=== PATIENT | female | born 1975 | race Caucasian/White ===

== ENCOUNTER 2018-09-21 10:58 | Emergency (ER) | payer OTHER ==
[~2018-09-21] VITALS: Ht 170.2 cm; Wt 108.9 kg
[~2018-09-21 10:58] MED LIST: IRON PO; MOTRIN200 MG PO; MOTRIN600 MG; ULTRAM 50MG50 MG; ULTRAM 50MG50 MG PO
[2018-09-21] MEDS ORDERED: KETOROLAC TROMETHAMINE 30 MG/ML VIAL IV NR (11:33)
[2018-09-21 11:44] LABS: BASOPHILS % 0.4 % (0.0-1.0); EOSINOPHILS # (AUTO) 0.2 (0.0-0.4); EOSINOPHILS % 1.4 % (0.0-6.0); HEMATOCRIT 40.1 % (34.2-44.1); HEMOGLOBIN 13.6 g/dL (12.0-16.0); LYMPHOCYTES % 9.7 % (18.0-39.1); MEAN CORPUSCULAR HEMOGLOBIN 29.1 pg (28-32); MEAN CORPUSCULAR HGB CONC 33.9 g/dL (31-35); MEAN CORPUSCULAR VOLUME 85.9 fL (81-99); MONOCYTES # (AUTO) 0.6 (0.2-0.8); MONOCYTES % 5.5 % (4.4-11.3); NEUTROPHILS # (AUTO) 8.6 (2.1-6.9); NEUTROPHILS % 82.6 % (38.7-80.0); PLATELET COUNT 341 x10e3/uL (140-360); RED BLOOD COUNT 4.67 x10e6/uL (3.6-5.1)
[2018-09-21] MEDS ORDERED: PROMETHAZINE 12.5MG/ NACL 0.9% 12.5 MG/50 ML BAG IV NR (11:45)
[2018-09-21] MEDS ORDERED: DIPHENHYDRAMINE HCL INJ 50 MG/ML VIAL IV NR (11:45)
[2018-09-21] MEDS ORDERED: DEXAMETHASONE SOD PHOS 10 MG/1 ML VIAL IV NR (11:45)
[2018-09-21] MEDS ORDERED: FAMOTIDINE 20 MG/2 ML VIAL IV NR (11:45)
[2018-09-21] MEDS ORDERED: SODIUM CHLORIDE 0.9% 1000ML 1,000 ML IV SCH (11:45)
[2018-09-21 11:47] LABS: BILIRUBIN,URINE NEGATIVE (NEGATIVE); CLARITY,URINE CLOUDY (CLEAR); COLOR,URINE YELLOW (YELLOW); KETONES,URINE NEGATIVE (NEGATIVE); LEUKOCYTE ESTERASE ,URINE NEGATIVE (NEGATIVE); NITRITE,URINE NEGATIVE (NEGATIVE); PROTEIN,URINE DIPSTICK TRACE (NEGATIVE); URINE UROBILINOGEN 0.2 mg/dL (0.2 - 1)
[2018-09-21 11:50] LABS: PREGNANCY TEST, URINE NEGATIVE (NEGATIVE)
[2018-09-21 12:01] LABS: AMORPHOUS SEDIMENT,URINE MODERATE (FEW); BACTERIA,URINE MODERATE /HPF; EPITHELIAL CELLS,URINE MODERATE /LPF; RBC,URINE 0-5 /HPF (0-5); WBC,URINE (MAN) 0-5 /HPF (0-5)
[2018-09-21 12:05] LABS: ALANINE AMINOTRANSFERASE 20 IU/L (0-55); ALBUMIN 4.2 g/dL (3.5-5.0); ALBUMIN/GLOBULIN RATIO 1.3 (0.8-2.0); ALKALINE PHOSPHATASE 88 IU/L (40-150); ANION GAP 14.2 mmol/L (8-16); BLOOD UREA NITROGEN 10 mg/dL (7-26); BUN/CREATININE RATIO 13 (6-25); CALCIUM 9.7 mg/dL (8.4-10.2); CARBON DIOXIDE 24 mmol/L (22-29); CHLORIDE 105 mmol/L (98-107); CREATININE, SERUM 0.76 mg/dL (0.57-1.11); EST GLOMERULAR FILTRATION RATE > 60 ML/MIN (60-); GLUCOSE 122 mg/dL (74-118); POTASSIUM 4.2 mmol/L (3.5-5.1); SODIUM 139 mmol/L (136-145)
[2018-09-21] MEDS ORDERED: METOCLOPRAMIDE HCL 10 MG/2ML VIAL IV NR (12:45)
[2018-09-21 13:59] VITALS: BP 116/79
== END 2018-09-21 14:08 | disposition home or self-care (01) ==
LOC: ER 10:58
DX: G44.019 Episodic cluster headache, not intractable (principal); Z79.1 Long term (current) use of non-steroidal anti-inflammatories (NSAID)
CPT/HCPCS: 36415; 80053; 81001; 81025; 82948; 85025; 99283; J1100; J1200; J1885; J2550; J2765; J7030

== ENCOUNTER 2019-09-07 18:35 | Emergency (ER) | payer OTHER ==
--- NOTE | 2019-09-07 18:46 | Emergency Department Note ---
History of Present Illnes History of Present Illness Chief Complaint: right sided abdominal pain History of Present Illness This is a 44 year old female , with no significant past medical history who presents with right lower quadrant pain that sometimes radiates to her back that has been intermittent for the past 2 weeks. He's had some nausea, but no fever, chills, vomiting, or diarrhea. Patient states she was seen 3 weeks ago and [facility] urgent care clinic and was treated for a possible urinary tract infection with Cipro for 5 days. She states that she has taken Azo intermittently over the last 2 weeks and the pain subsides, for some time. 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 She has UTIs from time to time, the last one being about 5 months ago. She denies any history of nephrolithiasis. Her only abdominal surgery is a partial hysterectomy. Historian: Patient Arrival Mode: Car Home Hospice Aide Required: No Onset (how long ago): week(s) (2) Location: RLQ/suprapubic area Quality: sharp, stabbing Radiation: Reports back Severity: moderate Onset quality: sudden Duration (how long): week(s) (2) Timing of current episode: constant (it has become constant) Progression: waxing and waning Chronicity: new (what she wanted) Context: Reports recent illness (treated for UTI @ 3 weeks ago(he is a three- day is a) Relieving factors: none Exacerbating factors: movement (movement sometimes provokes the right sided low back pain) Associated symptoms: Denies chest pain, Denies cough, Denies fever/chills, Denies loss of appetite, Denies nausea/vomiting (is as as possible while is a bowel) Treatments prior to arrival: none Past Medical/Family History Physician Review I have reviewed the patient's past medical and family history. Any updates have been documented here. Past Medical History Recent Fever: No Clinical Suspicion of Infectio: No New/Unexplained Change in Ment: No Past Medical History: None Past Surgical History: None, Hysterectomy Other Surgery: BLADDER REPAIR TUMOR REMOVED FROM BACK Social History Smoking Cessation: Never Smoker Alcohol Use: None Any Illegal Drug Use: No TB Exposure/Symptoms: No Physically hurt or threatened: No Family History Family history of heart diseas: No Other Last Tetanus: UNK Any Pre-Existing Lines (PICC,: No Is patient up to date on immun: No Review of Systems Review of Systems Constitutional: Reports no symptoms; Denies chills, Denies fever EENTM: Reports no symptoms Cardiovascular: Reports no symptoms Respiratory: Reports no symptoms; Denies cough Gastrointestinal: Reports abdominal pain, Reports nausea; Denies diarrhea, Denies vomiting Genitourinary: Denies discharge, Denies dysuria, Denies frequency, Denies hematuria Musculoskeletal: Reports no symptoms Integumentary: Reports no symptoms Neurological: Reports no symptoms Psychological: Reports no symptoms Review of other systems: All other systems negative Physical Exam Related Data Allergies: Coded Allergies: No Known Allergies (Unverified , 02/25/13) Vital signs reviewed: Yes Physical Exam CONSTITUTIONAL Constitutional: Present well-developed, Present well-nourished HENT HENT: Present normocephalic, Present atraumatic, Present oropharynx clear/moist, Present nose normal EYES Eyes: Reports PERRL, Reports conjunctivae normal NECK Neck: Present ROM normal PULMONARY Pulmonary: Present effort normal, Present breath sounds normal CARDIOVASCULAR Cardiovascular: Present regular rhythm, Present heart sounds normal, Present capillary refill normal, Present normal rate GASTROINTESTINAL Abdominal: Present soft, Present nontender, Present bowel sounds normal GENITOURINARY Genitourinary: Present exam deferred SKIN Skin: Present warm, Present dry MUSCULOSKELETAL Musculoskeletal: Present ROM normal NEUROLOGICAL Neurological: Present alert, Present oriented x 3, Present no gross motor or sensory deficits PSYCHOLOGICAL Psychological: Present mood/affect normal, Present judgement normal Results Laboratory Laboratory CBC - nl except WBC = 11.4 BMP -Cr = 1.2 LFT -nl UA - gluc = 100 mg/dl, Nit - positive; urine culture is ordered Lab results reviewed: Yes Imaging Imaging results reviewed: Yes Impressions [place] [id number] Patient Name: BUFFY CURRY MR #: [id number] : 1975 Age/Sex: 44/F Req #: [id number] Adm Physician: Ordered by: FRED ELIZONDO MD Report #: [id number] Location: [facility] Room/Bed: Procedure: [id number] HOPD/CT ABD/PEL WITH CONTRAST-HOPD Exam Date: 09/07/19 Exam Time: 2014 REPORT STATUS: Signed EXAM: CT Abdomen and Pelvis WITH contrast INDICATION: ^RLQ pain ^[id number] ^2014 COMPARISON: None. TECHNIQUE: Abdomen and pelvis were scanned utilizing a multidetector helical scanner from the lung base to the pubic symphysis after administration of IV contrast. Coronal and sagittal reformations were obtained. Routine protocol was performed. Scan was performed when during portal venous phase. IV CONTRAST: 100 mL of Isovue 370 ORAL CONTRAST: Water COMPLICATIONS: None RADIATION DOSE: Total DLP: 482 mGy*cm Estimated effective dose: (DLP x 0.015 x size factor) mSv CTDIvol has been reviewed. It is below the limits set by the Radiation Protocol Committee (RPC). Dose modulation, iterative reconstruction, and/or weight based adjustment of the mA/kV was utilized to reduce the radiation dose to as low as reasonably achievable. FINDINGS: LINES and TUBES: None. LOWER THORAX: Small hiatal hernia. HEPATOBILIARY: No focal hepatic lesions. No biliary ductal dilation. GALLBLADDER: Probable tiny gallstone. No wall thickening. SPLEEN: No splenomegaly. PANCREAS: No focal masses or ductal dilatation. ADRENALS: No adrenal nodules KIDNEYS/URETERS: Kidneys enhance symmetrically. No hydronephrosis. 2.6 cm left renal upper pole cyst. Small right renal lower pole cyst. No stones. GI TRACT: No abnormal distention, wall thickening, or evidence of bowel obstruction. Colonic diverticulosis. Appendix is normal. PELVIC ORGANS/BLADDER: The uterus is surgically absent. LYMPH NODES: No lymphadenopathy. VESSELS: Unremarkable. PERITONEUM / RETROPERITONEUM: No free air or fluid. BONES: No acute osseous abnormality. SOFT TISSUES: Unremarkable. IMPRESSION: No acute abdominal or pelvic abnormality. Signed by: Moreno Nunn MD on 09/07/2019 9:32 PM Dictated By: MORENO NUNN MD 31 Transcribed By: JOSE MARTIN on 09/07/192131 COPY TO: FRED ELIZONDO MD~ Diagnostics Tests Diagnostic test(s) reviewed: Yes Assessment & Plan Medical Decision Making MDM Take medication, as directed. You may also take Extra Strength Tylenol 500 mg - 2 tabs together every 4 hours, as needed, for pain. Follow-up with your Electrical Power Station Technician this week, for further evaluation of your pain. Return to the ED, if your pain worsens. Reassessment Reassessment time: 00:00 Assessment & Plan Final Impression: (1) RLQ abdominal pain (2) Renal cyst Depart Disposition: HOME, SELF-residential Meds Active Scripts Ciprofloxacin Hcl (CIPRO) 500 Mg Tablet, 500 MG PO BID for UTI for 7 Days, #14 TAB 0 Refills Prov:FRED ELIZONDO MD 09/07/19 Tramadol Hcl (ULTRAM) 50 Mg Tablet, 1-2 TAB PO Q6H PRN for pain, #20 TAB 0 Refills Do NOT take and drive or operate machinery. Prov:FRED ELIZONDO MD 09/07/19 Naproxen (NAPROXEN) 250 Mg Tablet, 500 MG PO BID PRN for pain and inflammaiton, #30 TAB 0 Refills Take with food Prov:FRED ELIZONDO MD 09/07/19 Tramadol Hcl* (ULTRAM 50MG*) 50 Mg Tab, 50 MG .ROUTE Q6H PRN for PAIN, #20 TAB Prov:FEMI CREWS MD 02/27/15 Ibuprofen (MOTRIN) 200 Mg Tab, 600 MG PO Q6H PRN for PAIN, #35 TAB 1 Refill Prov:FEMI CREWS MD 02/27/15 Reported Medications [Iron] No Conflict Check, PO DAILY 03/31/13 FRED ELIZONDO MD Sep 07, 2019 18:46
[2019-09-07] MEDS ORDERED: KETOROLAC TROMETHAMINE 30 MG/ML VIAL IV STA (19:32)
[2019-09-07] MEDS ORDERED: KETOROLAC TROMETHAMINE 30 MG/ML VIAL ONE (19:39)
[2019-09-07] MEDS ORDERED: SODIUM CHLORIDE 0.9% 500ML 500 ML ONE (19:39)
[2019-09-07] MEDS ORDERED: SODIUM CHLORIDE 0.9% 500ML 500 ML IV ONE (19:45)
[2019-09-07] MEDS ORDERED: IOPAMIDOL 370 MG/ML 200 ML INFUS..BTL INJ ONE (20:06)
--- NOTE | 2019-09-07 21:35 | Diagnostic Imaging Report ---
EXAM: CT Abdomen and Pelvis WITH contrast INDICATION: ^RLQ pain ^[id number] ^2014 COMPARISON: None. TECHNIQUE: Abdomen and pelvis were scanned utilizing a multidetector helical scanner from the lung base to the pubic symphysis after administration of IV contrast. Coronal and sagittal reformations were obtained. Routine protocol was performed. Scan was performed when during portal venous phase. IV CONTRAST: 100 mL of Isovue 370 ORAL CONTRAST: Water COMPLICATIONS: None RADIATION DOSE: Total DLP: 482 mGy*cm Estimated effective dose: (DLP x 0.015 x size factor) mSv CTDIvol has been reviewed. It is below the limits set by the Radiation Protocol Committee (RPC). Dose modulation, iterative reconstruction, and/or weight based adjustment of the mA/kV was utilized to reduce the radiation dose to as low as reasonably achievable. FINDINGS: LINES and TUBES: None. LOWER THORAX: Small hiatal hernia. HEPATOBILIARY: No focal hepatic lesions. No biliary ductal dilation. GALLBLADDER: Probable tiny gallstone. No wall thickening. SPLEEN: No splenomegaly. PANCREAS: No focal masses or ductal dilatation. ADRENALS: No adrenal nodules KIDNEYS/URETERS: Kidneys enhance symmetrically. No hydronephrosis. 2.6 cm left renal upper pole cyst. Small right renal lower pole cyst. No stones. GI TRACT: No abnormal distention, wall thickening, or evidence of bowel obstruction. Colonic diverticulosis. Appendix is normal. PELVIC ORGANS/BLADDER: The uterus is surgically absent. LYMPH NODES: No lymphadenopathy. VESSELS: Unremarkable. PERITONEUM / RETROPERITONEUM: No free air or fluid. BONES: No acute osseous abnormality. SOFT TISSUES: Unremarkable. IMPRESSION: No acute abdominal or pelvic abnormality. Signed by: Omid Cohen MD on 09/07/2019 9:32 PM
[2019-09-07] MEDS ORDERED: NAPROXEN250 MG PO (22:40)
[2019-09-07] MEDS ORDERED: ULTRAM50 MG PO (22:42)
[2019-09-07] MEDS ORDERED: CIPRO500 MG PO (22:48)
== END 2019-09-07 22:55 | disposition home or self-care (01) ==
LOC: FSED 20:00
DX: R10.31 Right lower quadrant pain (principal); N28.1 Cyst of kidney, acquired
CPT/HCPCS: 74177; 80048; 80076; 81003; 99284; J1885; J7040; Q9967

== ENCOUNTER 2019-10-07 20:36 | Emergency (ER) | payer OTHER ==
[~2019-10-07] VITALS: Ht 170.2 cm; Wt 108.9 kg
[~2019-10-07 20:36] MED LIST changes: +CIPRO500 MG PO; +NAPROXEN250 MG PO; +ULTRAM50 MG PO
[2019-10-07 21:23] LABS: BASOPHILS # (AUTO) 0.1 (0.0-0.1); BASOPHILS % 0.6 % (0.0-1.0); EOSINOPHILS # (AUTO) 0.2 (0.0-0.4); EOSINOPHILS % 1.6 % (0.0-6.0); HEMATOCRIT 40.4 % (34.2-44.1); HEMOGLOBIN 12.9 g/dL (12.0-16.0); LYMPHOCYTES # (AUTO) 2.2 (1.0-3.2); LYMPHOCYTES % 18.2 % (18.0-39.1); MEAN CORPUSCULAR HEMOGLOBIN 27.3 pg (28-32); MEAN CORPUSCULAR HGB CONC 31.9 g/dL (31-35); MEAN CORPUSCULAR VOLUME 85.6 fL (81-99); MONOCYTES # (AUTO) 0.9 (0.2-0.8); MONOCYTES % 7.5 % (4.4-11.3); NEUTROPHILS # (AUTO) 8.7 (2.1-6.9); NEUTROPHILS % 71.7 % (38.7-80.0); PLATELET COUNT 413 x10e3/uL (140-360); RED BLOOD COUNT 4.72 x10e6/uL (3.6-5.1)
[2019-10-07 21:33] LABS: CLARITY,URINE SL CLOUDY (CLEAR); COLOR,URINE YELLOW (YELLOW)
[2019-10-07 21:34] LABS: BILIRUBIN,URINE NEGATIVE (NEGATIVE); KETONES,URINE NEGATIVE (NEGATIVE); LEUKOCYTE ESTERASE ,URINE NEGATIVE (NEGATIVE); NITRITE,URINE NEGATIVE (NEGATIVE); PROTEIN,URINE DIPSTICK NEGATIVE (NEGATIVE); URINE UROBILINOGEN 0.2 mg/dL (0.2 - 1)
[2019-10-07 21:40] LABS: ALANINE AMINOTRANSFERASE 23 IU/L (0-55); ALBUMIN 4.2 g/dL (3.5-5.0); ALBUMIN/GLOBULIN RATIO 1.3 (0.8-2.0); ALKALINE PHOSPHATASE 77 IU/L (40-150); ANION GAP 14.9 mmol/L (8-16); BLOOD UREA NITROGEN 9 mg/dL (7-26); BUN/CREATININE RATIO 12 (6-25); CALCIUM 9.2 mg/dL (8.4-10.2); CARBON DIOXIDE 24 mmol/L (22-29); CHLORIDE 105 mmol/L (98-107); CREATININE, SERUM 0.75 mg/dL (0.57-1.11); EST GLOMERULAR FILTRATION RATE > 60 ML/MIN (60-); GLUCOSE 102 mg/dL (74-118); POTASSIUM 3.9 mmol/L (3.5-5.1); SODIUM 140 mmol/L (136-145)
[2019-10-07 21:45] LABS: BACTERIA,URINE FEW /HPF; EPITHELIAL CELLS,URINE MANY /LPF; RBC,URINE 0-5 /HPF (0-5)
--- NOTE | 2019-10-07 22:10 | Emergency Department Note ---
History of Present Illnes History of Present Illness Chief Complaint: Abdominal Complaints History of Present Illness This is a 44 year old female PRESENTS TO THE ER C/O INTERMITTENT RLQ ABD PAIN THAT RADIATES INTO GROIN AND LOWER BACK X2 MONTHS; PT STATES SHE HAS BEEN AT MULTIPLE ER'S FOR SAME COMPLAINT AND TREATED FOR UTI; CURRENTLY TAKING ABX; LAST TOOK TRAMADOL THIS AM; REPORTS HAS A SCHEDULED APPT WITH DR. Char PATHAK ON 10/19/19; . Historian: Patient Arrival Mode: Car Severity: moderate Onset quality: gradual Timing of current episode: intermittent Progression: waxing and waning Chronicity: chronic Context: Denies recent illness, Denies recent surgery, Denies trauma/injury Relieving factors: none Exacerbating factors: none Associated symptoms: Reports denies other symptoms Past Medical/Family History Physician Review I have reviewed the patient's past medical and family history. Any updates have been documented here. Past Medical History Recent Fever: No Clinical Suspicion of Infectio: No New/Unexplained Change in Ment: No Past Medical History: GERD Past Surgical History: Hysterectomy Other Surgery: BLADDER REPAIR TUMOR REMOVED FROM BACK Social History Smoking Cessation: Never Smoker Alcohol Use: None Any Illegal Drug Use: No Physically hurt or threatened: No Family History Family history of heart diseas: No Other Last Tetanus: UNK Any Pre-Existing Lines (PICC,: No Review of Systems Review of Systems Constitutional: Reports no symptoms EENTM: Reports no symptoms Cardiovascular: Reports no symptoms Respiratory: Reports no symptoms Gastrointestinal: Reports as per HPI Genitourinary: Reports no symptoms Musculoskeletal: Reports no symptoms Integumentary: Reports no symptoms Neurological: Reports no symptoms Psychological: Reports no symptoms Endocrine: Reports no symptoms Hematological/Lymphatic: Reports no symptoms Physical Exam Related Data Allergies: Coded Allergies: No Known Allergies (Unverified , 02/25/13) Triage Vital Signs Vital Signs Date Time Temp Pulse Resp B/P (MAP) Pulse Ox O2 Delivery O2 Flow Rate FiO2 10/07/19 21:01 98.3 77 18 156/95 100 Room Air Vital signs reviewed: Yes Physical Exam CONSTITUTIONAL Constitutional: Present well-developed, Present well-nourished HENT HENT: Present normocephalic, Present atraumatic, Present oropharynx clear/moist, Present nose normal HENT L/R: Present left ext ear normal, Present right ext ear normal EYES Eyes: Reports PERRL, Reports conjunctivae normal NECK Neck: Present ROM normal PULMONARY Pulmonary: Present effort normal, Present breath sounds normal CARDIOVASCULAR Cardiovascular: Present regular rhythm, Present heart sounds normal, Present capillary refill normal, Present normal rate GASTROINTESTINAL Abdominal: Present soft, Present nontender, Present bowel sounds normal GENITOURINARY Genitourinary: Present exam deferred SKIN Skin: Present warm, Present dry MUSCULOSKELETAL Musculoskeletal: Present ROM normal NEUROLOGICAL Neurological: Present alert, Present oriented x 3, Present no gross motor or sensory deficits PSYCHOLOGICAL Psychological: Present mood/affect normal, Present judgement normal Results Laboratory Result Diagram: 10/07/19211110/07/192111 Laboratory Laboratory Tests Test 10/07/19 21:12 10/07/19 21:09 White Blood Count 12.15 x10e3/uL (4.8-10.8) Red Blood Count 4.72 x10e6/uL (3.6-5.1) Hemoglobin 12.9 g/dL (12.0-16.0) Hematocrit 40.4 % (34.2-44.1) Mean Corpuscular Volume 85.6 fL (81-99) Mean Corpuscular Hemoglobin 27.3 pg (28-32) Mean Corpuscular Hemoglobin Concent 31.9 g/dL (31-35) Red Cell Distribution Width 13.0 % (11.7-14.4) Platelet Count 413 x10e3/uL (140-360) Neutrophils (%) (Auto) 71.7 % (38.7-80.0) Lymphocytes (%) (Auto) 18.2 % (18.0-39.1) Monocytes (%) (Auto) 7.5 % (4.4-11.3) Eosinophils (%) (Auto) 1.6 % (0.0-6.0) Basophils (%) (Auto) 0.6 % (0.0-1.0) Neutrophils # (Auto) 8.7 (2.1-6.9) Lymphocytes # (Auto) 2.2 (1.0-3.2) Monocytes # (Auto) 0.9 (0.2-0.8) Eosinophils # (Auto) 0.2 (0.0-0.4) Basophils # (Auto) 0.1 (0.0-0.1) Absolute Immature Granulocyte (auto 0.05 x10e3/uL (0-0.1) Sodium Level 140 mmol/L (136-145) Potassium Level 3.9 mmol/L (3.5-5.1) Chloride Level 105 mmol/L (98-107) Carbon Dioxide Level 24 mmol/L (22-29) Anion Gap 14.9 mmol/L (8-16) Blood Urea Nitrogen 9 mg/dL (7-26) Creatinine 0.75 mg/dL (0.57-1.11) Estimat Glomerular Filtration Rate > 60 ML/MIN (60-) BUN/Creatinine Ratio 12 (6-25) Glucose Level 102 mg/dL (74-118) Calcium Level 9.2 mg/dL (8.4-10.2) Total Bilirubin 0.3 mg/dL (0.2-1.2) Aspartate Amino Transf (AST/SGOT) 16 IU/L (5-34) Alanine Aminotransferase (ALT/SGPT) 23 IU/L (0-55) Alkaline Phosphatase 77 IU/L (40-150) Total Protein 7.4 g/dL (6.5-8.1) Albumin 4.2 g/dL (3.5-5.0) Globulin 3.2 g/dL (2.3-3.5) Albumin/Globulin Ratio 1.3 (0.8-2.0) Urine Color Yellow (YELLOW) Urine Clarity Sl cloudy (CLEAR) Urine pH 6 (5 - 7) Urine Specific [place] 1.030 (1.010-1.025) Urine Protein Negative (NEGATIVE) Urine Glucose (UA) Negative (NEGATIVE) Urine Ketones Negative (NEGATIVE) Urine Blood Trace (NEGATIVE) Urine Nitrite Negative (NEGATIVE) Urine Bilirubin Negative (NEGATIVE) Urine Urobilinogen 0.2 mg/dL (0.2 - 1) Urine Leukocyte Esterase Negative (NEGATIVE) Urine RBC 0-5 /HPF (0-5) Urine WBC None /HPF (0-5) Urine Epithelial Cells Many /LPF (NONE) Urine Bacteria Few /HPF (NONE) Lab results reviewed: Yes Imaging Imaging results reviewed: Yes Impressions Procedure: [id number] DX/ABDOMEN-1VIEW (KUB) Exam Date: 10/07/19 Exam Time: 2205 REPORT STATUS: Signed EXAM: Abdomen Radiograph 1 View(s) INDICATION: ^RLQ ABD PAIN COMPARISON: CT dated 09/07/2019 FINDINGS: No abnormalities in the lower chest. No lines or tubes. Normal volume of stool in the colon. There is a single short segment mildly dilated loop of small bowel left upper quadrant measurement of 3.0 cm. A few pelvic phleboliths correlate with prior CT. No acute osseous abnormality. IMPRESSION: Short segment single loop of mildly dilated small bowel in the left upper quadrant could represent focal ileus or reactive to unknown inflammatory change. Otherwise, nonobstructive bowel gas pattern. Consider CT if clinically warranted or symptoms do not improve. Signed by: Edie Jean MD on 10/07/2019 11:33 PM Dictated By: EDIE JEAN MD 32 Transcribed By: JOSE MARTIN on 10/07/192332 Procedure: [id number] CT/CT ABDOMEN/PELVIS W Exam Date: Exam Time: REPORT STATUS: Signed EXAM: CT Abdomen and Pelvis WITH contrast INDICATION: ^eval findings on kub, right lower quadrant pain. ^Y COMPARISON: CT dated 09/07/2019. TECHNIQUE: Abdomen and pelvis were scanned utilizing a multidetector helical scanner from the lung base to the pubic symphysis after administration of IV contrast. Coronal and sagittal reformations were obtained. Routine protocol was performed. Scan was performed when during portal venous phase. IV CONTRAST: 100 mL of Isovue 370 ORAL CONTRAST: None COMPLICATIONS: None RADIATION DOSE: Total DLP: 1457 mGy*cm Estimated effective dose: (DLP x 0.015 x size factor) mSv CTDIvol has been reviewed. It is below the limits set by the Radiation Protocol Committee (RPC). Dose modulation, iterative reconstruction, and/or weight based adjustment of the mA/kV was utilized to reduce the radiation dose to as low as reasonably achievable. FINDINGS: LINES and TUBES: None. LOWER THORAX: Unremarkable HEPATOBILIARY: No focal hepatic lesions. No biliary ductal dilation. GALLBLADDER: No radio-opaque stones or sludge. No wall thickening. SPLEEN: No splenomegaly. PANCREAS: No focal masses or ductal dilatation. ADRENALS: No adrenal nodules KIDNEYS/URETERS: Kidneys enhance symmetrically. No hydronephrosis. Simple benign-appearing left renal cyst. No stones. GI TRACT: No abnormal distention, wall thickening, or evidence of bowel obstruction. Appendix is normal.: Colonic diverticulosis without evidence of acute diverticulitis. PELVIC ORGANS/BLADDER: Status post hysterectomy.. LYMPH NODES: No lymphadenopathy. VESSELS: Unremarkable. PERITONEUM / RETROPERITONEUM: No free air or fluid. BONES: Unremarkable. SOFT TISSUES: Unremarkable. IMPRESSION: 1. No acute abdominopelvic process. 2. Colonic diverticulosis without evidence of acute diverticulitis. Signed by: Edie Jean MD on 10/08/2019 2:30 AM Dictated By: EDIE JEAN MD 9 Transcribed By: JOSE MARTIN on 10/08/19229 COPY TO: SIMA GONZALEZ MD~ Assessment & Plan Medical Decision Making MDM PT WITH CHRONIC RLQ PAIN, HAD CT LAST MONTH FOR SAME. HAS APPT WITH DR Angel PATHAK 10/18 CBC, CMP, KUB, UA ORDERED TO EVAL FOR LEUKOCYTOSIS, ELEVATED LFT'S, UTI, HEMATURIA, CONSTIPATION, Assessment & Plan Final Impression: (1) RLQ abdominal pain Depart Disposition: HOME, SELF-CARE Last Vital Signs Date Time Temp Pulse Resp B/P (MAP) Pulse Ox O2 Delivery O2 Flow Rate FiO2 10/07/19 21:01 98.3 77 18 156/95 100 Room Air Home Meds Active Scripts Ciprofloxacin Hcl (CIPRO) 500 Mg Tablet, 500 MG PO BID for UTI for 7 Days, #14 TAB 0 Refills Prov:FRED ELIZONDO MD 09/07/19 Tramadol Hcl (ULTRAM) 50 Mg Tablet, 1-2 TAB PO Q6H PRN for pain, #20 TAB 0 Refills Do NOT take and drive or operate machinery. Prov:FRED ELIZONDO MD 09/07/19 Naproxen (NAPROXEN) 250 Mg Tablet, 500 MG PO BID PRN for pain and inflammaiton, #30 TAB 0 Refills Take with food Prov:FRED ELIZONDO MD 09/07/19 Tramadol Hcl* (ULTRAM 50MG*) 50 Mg Tab, 50 MG .ROUTE Q6H PRN for PAIN, #20 TAB Prov:FEMI CREWS MD 02/27/15 Ibuprofen (MOTRIN) 200 Mg Tab, 600 MG PO Q6H PRN for PAIN, #35 TAB 1 Refill Prov:FEMI CREWS MD 02/27/15 Reported Medications [Iron] No Conflict Check, PO DAILY 03/31/13 SIMA GONZALEZ MD Oct 07, 2019 22:10
--- OUTSIDE RECORDS SUMMARY | 2019-10-07 22:22 | XMS REPORT | Continuity of Care Document ---
Author Author [facility] t Organization [facility] Address [address] [place] [address] Phone Unavailable Care Team Providers Care Manager Etl Name Role Phone LAWSON SWAIN, MD WIN PCP Linda ELIZONDO Unavailable Payers Payer Name Policy Type Policy Number Effective Date Expiration Date S [facility] Ppo [id number] [facility] Miscellaneous Ppo [id number] 2014 00:00:00 [facility] Problems Condition Name Condition Details Condition Category Status Onset Date Resolution Date Last Treatment Date Treating Clinician Comments Source Problem Condition Active [facility] Allergies, Adverse Reactions, Alerts This patient has no known allergies or adverse reactions. Social History Social Habit Start Date Stop Date Quantity Comments Source Sex Assigned At 1975 00:00:00 1975 00:00:00 Female [facility] Medications Ordered Medication Name Filled Medication Name Start Date Stop Da te Current Medication? Ordering Clinician Indication Dosage Frequency Signature (SIG) Comments Components Source Ciprofloxacin Hcl (Cipro) 500 Mg TABLET Ciprofloxacin Hcl (C ipro) 500 Mg TABLET 2019-09-07 22:48:00 Yes 500 Twice A Day for Ut i [facility] Tramadol Hcl (Ultram) 50 Mg TABLET Tramadol Hcl (Ultram) 50 Mg TABLET 2019-09-07 22:42:00 Yes Every 6 Hours as needed for P ain [facility] Naproxen Naproxen 2019-09-07 22:40:00 Yes 500 Twice A Day as needed for Pain [facility] Ibuprofen (Motrin) 200 Mg TAB Ibuprofen (Motrin) 200 Mg TAB 2014 21:06:00 Yes 600 Every 6 Hours as needed for Pain [facility] Tramadol Hcl (Ultram 50MG*) 50 Mg TAB Tramadol Hcl (Ultram 5 0MG*) 50 Mg TAB 2015-02-27 21:06:00 Yes 50 Every 6 Hours as n eeded for Pain [facility] [place] Yes Daily [facility] Ibuprofen (Motrin) 600 Mg TABLET Ibuprofen (Motrin) 600 Mg TABLE T 2015-02-22 00:00:00 No [facility] Procedures This patient has no known procedures. Plan of Care Planned Activity Planned Date Details Comments Source Instructions Abdominal Pain - Adult [facility] Encounters Start Date/Time End Date/Time [facility] Ad[facility] ID Source 2019-09-07 20:00:00 2019-09-07 22:55:00 Departed Emergency Room 1 FRED ELIZONDO [facility] [id number] [facility] 2018-09-21 10:58:00 2018-09-21 14:08:00 Departed Emergency Room [facility] [id number] [facility] Results Test Description Test Time Test Comments Results Result Comments Source CT ABD/PEL WITH CONTRAST-HOPD 2019-09-07 21:27:00 [facility] [address] [place] [address] Patient Name: BUFFY CURRY MR #: [id number] : 1975 Age/Sex: 44/F Req #: [id number] Adm Physician: Ordered by: FRED ELIZONDO MD Report #: [id number] Location: [facility] Room/Bed: Procedure: [id number] HOPD/CT ABD/PEL WITH CONTRAST-HOPD Exam Date: 09/07/19 Exam Time: 2014 REPORT STATUS: Signed EXAM: CT Abdomen and Pelvis WITH contrast INDICATION: RLQ pain [id number] COMPARISON: None. TECHNIQUE: Abdomen and pelvis were scanned utilizing a multidetector helical scanner from the lung base to the pubic symphysis after administration of IV contrast. Coronal and sagittal reformations were obtained. Routine protocol was performed. Scan was performed when during portal venous phase. IV CONTRAST: 100 mL of Isovue 370 ORAL CONTRAST: Water COMPLICATIONS: None RADIATION DOSE: Total DLP: 482 mGy*cm Estimated effective dose: (DLP x 0.015 x size factor) mSv CTDIvol has been reviewed. It is below the limits set by the Radiation Protocol Committee (RPC). Dose modulation, iterative reconstruction, and/or weight based adjustment of the mA/kV was utilized to reduce the radiation dose to as low as reasonably achievable. FINDINGS: LINES and TUBES: None. LOWER THORAX: Small hiatal hernia. HEPATOBILIARY: No focal hepatic lesions. No biliary ductal dilation. GALLBLADDER: Probable tiny gallstone. No wall thickening. SPLEEN: No splenomegaly. PANCREAS: No focal masses or ductal dilatation. ADRENALS: No adrenal nodules KIDNEYS/URETERS: Kidneys enhance symmetrically. No hydronephrosis. 2.6 cm left renal upper pole cyst. Small right renal lower pole cyst. No stones. GI TRACT: No abnormal distention, wall thickening, or evidence of bowel obstruction. Colonic diverticulosis. Appendix is normal. PELVIC ORGANS/BLADDER: The uterus is surgically absent. LYMPH NODES: No lymphadenopathy. VESSELS: Unremarkable. PERITONEUM / RETROPERITONEUM: No free air or fluid. BONES: No acute osseous abnormality. SOFT TISSUES: Unremarkable. IMPRESSION: No acute abdominal or pelvic abnormality. Signed by: Moreno Nunn MD on 09/07/2019 9:32 PM Dictated By: MORENO NUNN MD 31 Transcribed By: JOSE MARTIN on 09/07/192131 COPY TO: FRED ELIZONDO MD Sodium Level 2018-09-21 12:10:00 Test Item Sodium Level (test code = 2951-2) 139 136-145 [facility] Kabec7240-40-45 12:10:00* Test Item Value Reference Range Interpretation Comments Potassium Level (test code = 2823-3) 4.2 3.5-5.1 [facility] NorthwestChloride Zxkhv7232-85-82 12:10:00* Test Item Value Reference Range Interpretation Comments Chloride Level (test code = 2075-0) 105 98-107 [facility] NorthwestCarbon Dioxide Mybdc7697-41-32 12:10:00* Test Item Value Reference Range Interpretation Comments Carbon Dioxide Level (test code = 2028-9) 24 22-29 [facility] NorthwestAnion Wzx0178-64-00 12:10:00* Test Item Value Reference Range Interpretation Comments Anion Gap (test code = 16692-2) 14.2 8-16 [facility] NorthwestBlood Urea Vkkhuvvj6107-09-01 12:10:00* Test Item Value Reference Range Interpretation Comments Blood Urea Nitrogen (test code = 3094-0) 10 7-26 [facility] NorthwestCreatinine2019-07-16 12:10:00* Test Item Value Reference Range Interpretation Comments Creatinine (test code = 2160-0) 0.76 0.57-1.11 [facility] NorthwestBUN/Creatinine Bokdm8613-21-15 12:10:00* Test Item Value Reference Range Interpretation Comments BUN/Creatinine Ratio (test code = 3097-3) 13 6-25 [facility] NorthwestEstimat Glomerular Filtration Rate 2018-09-21 12:10:00* Test Item Value Reference Range Interpretation Comments Estimat Glomerular Filtration Rate (test code = 192182990) > 60 >60 Ranges were taken from the National Kidney Disease Education Program and the [employer] literature.Reference ranges:60 or greater: Kwnjyl06-93 ( for 3 consecutive months): Chronic kidney disease 15 or less: Kidney failureCorpus Christi Medical Center NorthwestGlucose Aaywg9144-65-91 12:10:00* Test Item Value Reference Range Interpretation Comments Glucose Level (test code = GVP1394) 122 74-118 H [facility] NorthwestCalcium Udbgc7512-48-49 12:10:00* Test Item Value Reference Range Interpretation Comments Calcium Level (test code = 70711-2) 9.7 8.4-10.2 [facility] NorthwestTotal Dtwdgpjhk3816-26-56 12:10:00* Test Item Value Reference Range Interpretation Comments Total Bilirubin (test code = 1975-2) 0.4 0.2-1.2 [facility] NorthwestAspartate Amino Transf (AST/SGOT) 2018-09-21 12:10:00* Test Item Value Reference Range Interpretation Comments Aspartate Amino Transf (AST/SGOT) (test code = Aspartate Amino Transf (AST/SGOT)) 17 5-34 [facility] NorthwestAlanine Aminotransferase (ALT/SGPT) 2018-09-21 12:10:00* Test Item Value Reference Range Interpretation Comments Alanine Aminotransferase (ALT/SGPT) (test code = 1742-6) 20 0-55 [facility] NorthwestTotal Azszaex0244-41-73 12:10:00* Test Item Value Reference Range Interpretation Comments Total Protein (test code = 2885-2) 7.5 6.5-8.1 [facility] NorthwestAlbumin2019-07-16 12:10:00* Test Item Value Reference Range Interpretation Comments Albumin (test code = 1751-7) 4.2 3.5-5.0 [facility] NorthwestGlobulin2019-07-16 12:10:00* Test Item Value Reference Range Interpretation Comments Globulin (test code = 44427-9) 3.3 2.3-3.5 [facility] NorthwestAlbumin/Globulin Dsroi9043-48-90 12:10:00 * Test Item Value Reference Range Interpretation Comments Albumin/Globulin Ratio (test code = 1759-0) 1.3 0.8-2.0 [facility] NorthwestAlkaline Zjvvnmslpni5492-36-74 12:10:00* Test Item Value Reference Range Interpretation Comments Alkaline Phosphatase (test code = 6768-6) 88 40-150 [facility] NorthwestUrine WHK6691-81-91 12:01:00* Test Item Value Reference Range Interpretation Comments Urine WBC (test code = 5821-4) 0-5 0-5 [facility] NorthwestUrine VQG6521-14-62 12:01:00* Test Item Value Reference Range Interpretation Comments Urine RBC (test code = 26632-6) 0-5 0-5 [facility] NorthwestUrine Rvmzhwtg1705-54-08 12:01:00* Test Item Value Reference Range Interpretation Comments Urine Bacteria (test code = 10843-4) MODERATE NONE H [facility] NorthwestUrine Epithelial Xwgus2302-45-31 12:01:00 * Test Item Value Reference Range Interpretation Comments Urine Epithelial Cells (test code = 10368-8) MODERATE NONE [facility] Amorphous Hkvucdrw5554-93-30 12:01:00* Test Item Value Reference Range Interpretation Comments Urine Amorphous Sediment (test code = 8246-1) MODERATE FEW H [facility] NorthwestUrine Bnec9588-79-82 11:50:00* Test Item Value Reference Range Interpretation Comments Urine Test (test code = 2106-3) NEGATIVE NEGATIVE [facility] NorthwestUrine Dzdmi3238-00-50 11:47:00* Test Item Value Reference Range Interpretation Comments Urine Color (test code = 5778-6) YELLOW YELLOW [facility] NorthwestUrine Lkiiibv0391-79-74 11:47:00* Test Item Value Reference Range Interpretation Comments Urine Clarity (test code = 36410-3) CLOUDY CLEAR H [facility] NorthwestUrine Specific Uyyjhge8170-14-07 11:47:00 * Test Item Value Reference Range Interpretation Comments Urine Specific [place] (test code = 5811-5) 1.015 1.010-1.02 5 [facility] NorthwestUrine yB4541-57-72 11:47:00* Test Item Value Reference Range Interpretation Comments Urine pH (test code = 51447-5) 8 5-7 [facility] NorthwestUrine Leukocyte Vdgruvxh3216-95-86 11:47:00* Test Item Value Reference Range Interpretation Comments Urine Leukocyte Esterase (test code = 77074-8) NEGATIVE NEGATIV E [facility] NorthwestUrine Eebnopi7413-29-68 11:47:00* Test Item Value Reference Range Interpretation Comments Urine Nitrite (test code = 05980-1) NEGATIVE NEGATIVE [facility] NorthwestUrine Yffeeuc1151-15-68 11:47:00* Test Item Value Reference Range Interpretation Comments Urine Protein (test code = 40690-0) TRACE NEGATIVE H [facility] NorthwestUrine Glucose (UA)2018-09-21 11:47:00* Test Item Value Reference Range Interpretation Comments Urine Glucose (UA) (test code = 55604-1) NEGATIVE NEGATIVE [facility] NorthwestUrine Eazukjs0993-80-54 11:47:00* Test Item Value Reference Range Interpretation Comments Urine Ketones (test code = 66754-4) NEGATIVE NEGATIVE [facility] NorthwestUrine Idabkltmypgo1277-42-73 11:47:00* Test Item Value Reference Range Interpretation Comments Urine Urobilinogen (test code = 70263-8) 0.2 0.2-1 [facility] NorthwestUrine Vkfeovzjt2456-21-69 11:47:00* Test Item Value Reference Range Interpretation Comments Urine Bilirubin (test code = 1977-8) NEGATIVE NEGATIVE [facility] NorthwestUrine Ujfqf4802-49-32 11:47:00* Test Item Value Reference Range Interpretation Comments Urine Blood (test code = 93936-5) NEGATIVE NEGATIVE [facility] NorthwestWhite Blood Cvwho7897-62-65 11:46:00* Test Item Value Reference Range Interpretation Comments White Blood Count (test code = 6690-2) 10.42 4.8-10.8 [facility] NorthwestRed Blood Hrukn2961-91-59 11:46:00* Test Item Value Reference Range Interpretation Comments Red Blood Count (test code = 789-8) 4.67 3.6-5.1 [facility] NorthwestHemoglobin2019-07-16 11:46:00* Test Item Value Reference Range Interpretation Comments Hemoglobin (test code = 25133-5) 13.6 12.0-16.0 [facility] NorthwestHematocrit2019-07-16 11:46:00* Test Item Value Reference Range Interpretation Comments Hematocrit (test code = 4544-3) 40.1 34.2-44.1 [facility] NorthwestMean Corpuscular Lainul5309-51-62 11:46:00* Test Item Value Reference Range Interpretation Comments Mean Corpuscular Volume (test code = 787-2) 85.9 81-99 [facility] NorthwestMean Corpuscular Uxhjlwjdga6492-27-00 11:46:00* Test Item Value Reference Range Interpretation Comments Mean Corpuscular Hemoglobin (test code = 785-6) 29.1 28-32 [facility] NorthwestMean Corpuscular Hemoglobin Concent 2018-09-21 11:46:00* Test Item Value Reference Range Interpretation Comments Mean Corpuscular Hemoglobin Concent (test code = 786-4) 33.9 31-35 [facility] NorthwestRed Cell Distribution Ssuxq0677-81-24 11:46:00* Test Item Value Reference Range Interpretation Comments Red Cell Distribution Width (test code = 67229-4) 13.0 11.7 -14.4 [facility] NorthwestPlatelet Etxne6067-76-67 11:46:00* Test Item Value Reference Range Interpretation Comments Platelet Count (test code = 777-3) 341 140-360 [facility] NorthwestNeutrophils (%) (Auto)2018-09-21 11:46:00 * Test Item Value Reference Range Interpretation Comments Neutrophils (%) (Auto) (test code = 83789-0) 82.6 38.7-80.0 H [facility] NorthwestLymphocytes (%) (Auto)2018-09-21 11:46:00 * Test Item Value Reference Range Interpretation Comments Lymphocytes (%) (Auto) (test code = 736-9) 9.7 18.0-39.1 L [facility] NorthwestMonocytes (%) (Auto)2018-09-21 11:46:00* Test Item Value Reference Range Interpretation Comments Monocytes (%) (Auto) (test code = 5905-5) 5.5 4.4-11.3 [facility] NorthwestEosinophils (%) (Auto)2018-09-21 11:46:00 * Test Item Value Reference Range Interpretation Comments Eosinophils (%) (Auto) (test code = 713-8) 1.4 0.0-6.0 [facility] NorthwestBasophils (%) (Auto)2018-09-21 11:46:00* Test Item Value Reference Range Interpretation Comments Basophils (%) (Auto) (test code = 706-2) 0.4 0.0-1.0 [facility] NorthwestIM GRANULOCYTES %2018-09-21 11:46:00* Test Item Value Reference Range Interpretation Comments IM GRANULOCYTES % (test code = IM GRANULOCYTES %) 0.4 0.0- 1.0 [facility] NorthwestNeutrophils # (Auto)2018-09-21 11:46:00* Test Item Value Reference Range Interpretation Comments Neutrophils # (Auto) (test code = 751-8) 8.6 2.1-6.9 H [facility] NorthwestLymphocytes # (Auto)2018-09-21 11:46:00* Test Item Value Reference Range Interpretation Comments Lymphocytes # (Auto) (test code = 62388-3) 1.0 1.0-3.2 [facility] NorthwestMonocytes # (Auto)2018-09-21 11:46:00* Test Item Value Reference Range Interpretation Comments Monocytes # (Auto) (test code = 742-7) 0.6 0.2-0.8 [facility] NorthwestEosinophils # (Auto)2018-09-21 11:46:00* Test Item Value Reference Range Interpretation Comments Eosinophils # (Auto) (test code = 711-2) 0.2 0.0-0.4 [facility] NorthwestBasophils # (Auto)2018-09-21 11:46:00* Test Item Value Reference Range Interpretation Comments Basophils # (Auto) (test code = 704-7) 0.0 0.0-0.1 [facility] NorthwestAbsolute Immature Granulocyte (auto 2018-09-21 11:46:00* Test Item Value Reference Range Interpretation Comments Absolute Immature Granulocyte (auto (bulmaro t code = Absolute Immature Granulocyte (auto) 0.04 0-0.1 [facility]
--- NOTE | 2019-10-07 23:37 | Diagnostic Imaging Report ---
EXAM: Abdomen Radiograph 1 View(s) INDICATION: ^RLQ ABD PAIN COMPARISON: CT dated 09/07/2019 FINDINGS: No abnormalities in the lower chest. No lines or tubes. Normal volume of stool in the colon. There is a single short segment mildly dilated loop of small bowel left upper quadrant measurement of 3.0 cm. A few pelvic phleboliths correlate with prior CT. No acute osseous abnormality. IMPRESSION: Short segment single loop of mildly dilated small bowel in the left upper quadrant could represent focal ileus or reactive to unknown inflammatory change. Otherwise, nonobstructive bowel gas pattern. Consider CT if clinically warranted or symptoms do not improve. Signed by: Cisco Winter MD on 10/07/2019 11:33 PM
[2019-10-07] MEDS ORDERED: KETOROLAC TROMETHAMINE 30 MG/ML VIAL IV STA (23:55)
[2019-10-08] MEDS ORDERED: DIATRIZOATE MEGL/DIATRIZOA SOD 30 ML BTL PO ONE (00:18)
--- NOTE | 2019-10-08 02:33 | Diagnostic Imaging Report ---
EXAM: CT Abdomen and Pelvis WITH contrast INDICATION: ^eval findings on kub, right lower quadrant pain. ^Y COMPARISON: CT dated 09/07/2019. TECHNIQUE: Abdomen and pelvis were scanned utilizing a multidetector helical scanner from the lung base to the pubic symphysis after administration of IV contrast. Coronal and sagittal reformations were obtained. Routine protocol was performed. Scan was performed when during portal venous phase. IV CONTRAST: 100 mL of Isovue 370 ORAL CONTRAST: None COMPLICATIONS: None RADIATION DOSE: Total DLP: 1457 mGy*cm Estimated effective dose: (DLP x 0.015 x size factor) mSv CTDIvol has been reviewed. It is below the limits set by the Radiation Protocol Committee (RPC). Dose modulation, iterative reconstruction, and/or weight based adjustment of the mA/kV was utilized to reduce the radiation dose to as low as reasonably achievable. FINDINGS: LINES and TUBES: None. LOWER THORAX: Unremarkable HEPATOBILIARY: No focal hepatic lesions. No biliary ductal dilation. GALLBLADDER: No radio-opaque stones or sludge. No wall thickening. SPLEEN: No splenomegaly. PANCREAS: No focal masses or ductal dilatation. ADRENALS: No adrenal nodules KIDNEYS/URETERS: Kidneys enhance symmetrically. No hydronephrosis. Simple benign-appearing left renal cyst. No stones. GI TRACT: No abnormal distention, wall thickening, or evidence of bowel obstruction. Appendix is normal.: Colonic diverticulosis without evidence of acute diverticulitis. PELVIC ORGANS/BLADDER: Status post hysterectomy.. LYMPH NODES: No lymphadenopathy. VESSELS: Unremarkable. PERITONEUM / RETROPERITONEUM: No free air or fluid. BONES: Unremarkable. SOFT TISSUES: Unremarkable. IMPRESSION: 1. No acute abdominopelvic process. 2. Colonic diverticulosis without evidence of acute diverticulitis. Signed by: Cisco Winter MD on 10/08/2019 2:30 AM
== END 2019-10-08 02:58 | disposition home or self-care (01) ==
LOC: ER 21:14
DX: R10.31 Right lower quadrant pain (principal); K21.9 Gastro-esophageal reflux disease without esophagitis
CPT/HCPCS: 36415; 74018; 74177; 80053; 81001; 85025; 99284; J1885

== ENCOUNTER 2021-03-19 18:05 | Emergency (ER) | payer OTHER ==
[~2021-03-19] VITALS: Ht 170.2 cm; Wt 113.4 kg
[2021-03-19] MEDS ORDERED: ONDANSETRON HCL INJ 2MG/ML 2ML 2 MG/ML VIAL IV NR (18:46)
[2021-03-19] MEDS ORDERED: SODIUM CHLORIDE 0.9% 1000ML 1,000 ML IV STA (18:47)
[2021-03-19 19:00] LABS: BASOPHILS # (AUTO) 0.1 (0.0-0.1); BASOPHILS % 0.6 % (0.0-1.0); EOSINOPHILS # (AUTO) 0.3 (0.0-0.4); EOSINOPHILS % 2.3 % (0.0-6.0); HEMATOCRIT 41.9 % (34.2-44.1); HEMOGLOBIN 13.3 g/dL (12.0-16.0); LYMPHOCYTES # (AUTO) 2.3 (1.0-3.2); MEAN CORPUSCULAR HEMOGLOBIN 27.5 pg (28-32); MEAN CORPUSCULAR HGB CONC 31.7 g/dL (31-35); MEAN CORPUSCULAR VOLUME 86.6 fL (81-99); MONOCYTES # (AUTO) 0.9 (0.2-0.8); MONOCYTES % 8.5 % (4.4-11.3); NEUTROPHILS # (AUTO) 7.2 (2.1-6.9); NEUTROPHILS % 67.2 % (38.7-80.0); PLATELET COUNT 472 x10e3/uL (140-360); RED BLOOD COUNT 4.84 x10e6/uL (3.6-5.1); RED CELL DISTRIBUTION WIDTH 13.2 % (11.7-14.4)
[2021-03-19] MEDS ORDERED: KETOROLAC TROMETHAMINE 30 MG/ML VIAL IV NR (19:00)
[2021-03-19 19:24] LABS: ALBUMIN 4.4 g/dL (3.5-5.0); ALBUMIN/GLOBULIN RATIO 1.3 (0.8-2.0); ANION GAP 15.6 mmol/L (8-16); CALCIUM 9.4 mg/dL (8.4-10.2); CREATININE, SERUM 0.79 mg/dL (0.57-1.11); POTASSIUM 3.6 mmol/L (3.5-5.1)
[2021-03-19] MEDS ORDERED: SODIUM CHLORIDE 0.9% 50ML 50 ML ONE (19:44)
[2021-03-19] MEDS ORDERED: IOPAMIDOL 370 MG/ML 200 ML INFUS..BTL INJ ONE (19:44)
[2021-03-19] MEDS ORDERED: KETOROLAC TROMETHAMINE 30 MG/ML VIAL IV STA (20:15)
[2021-03-19] MEDS ORDERED: ONDANSETRON HCL INJ 2MG/ML 2ML 2 MG/ML VIAL IV STA (20:15)
[2021-03-19] MEDS ORDERED: DICYCLOMINE HCL10 MG PO (20:44)
[2021-03-19] MEDS ORDERED: ONDANSETRON ODT4 MG PO (20:44)
== END 2021-03-19 21:02 | disposition home or self-care (01) ==
LOC: MERGE 18:35 → ER 18:35
DX: R10.11 Right upper quadrant pain (principal); K57.10 Diverticulosis of small intestine without perforation or abscess without bleeding; R11.2 Nausea with vomiting, unspecified
CPT/HCPCS: 36415; 74177; 80053; 83690; 84484; 85025; 99284; J1885; J2405; J7030; Q9967

== ENCOUNTER 2022-07-23 16:58 | Inpatient (IN) | payer OTHER ==
[~2022-07-23] VITALS: Ht 170.2 cm; Wt 112.5 kg
[~2022-07-23 16:58] MED LIST changes: +DICYCLOMINE HCL10 MG PO; +ONDANSETRON ODT4 MG PO
[2022-07-23] MEDS ORDERED: MAGNESIUM/ALUMINUM/SIMETHICONE 30 ML UDC ONE (17:17)
[2022-07-23] MEDS ORDERED: ONDANSETRON HCL INJ 2MG/ML 2ML 2 MG/ML VIAL ONE ×2 (17:17→20:45)
[2022-07-23] MEDS ORDERED: BELLADONNA ALK/PHENOBARBITAL 5 ML UDC ONE (17:17)
[2022-07-23] MEDS ORDERED: KETOROLAC TROMETHAMINE 30 MG/ML VIAL ONE (17:17)
[2022-07-23] MEDS ORDERED: LIDOCAINE VISC 2% SOLN 15 ML UDC ONE (17:18)
[2022-07-23] MEDS ORDERED: FAMOTIDINE 20 MG/2 ML VIAL IV ONE (17:18)
[2022-07-23] MEDS ORDERED: SODIUM CHLORIDE 0.9% 1000ML 1,000 ML ONE ×2 (17:18→18:24)
[2022-07-23] MEDS ORDERED: ONDANSETRON HCL INJ 2MG/ML 2ML 2 MG/ML VIAL IV STA ×2 (17:33→20:29)
[2022-07-23] MEDS ORDERED: FAMOTIDINE 20 MG/2 ML VIAL IV STA (17:33)
[2022-07-23] MEDS ORDERED: KETOROLAC TROMETHAMINE 30 MG/ML VIAL IV STA (17:33)
[2022-07-23] MEDS ORDERED: BELLADONNA ALK/PHENOBARBITAL 5 ML UDC PO ONE (17:45)
[2022-07-23] MEDS ORDERED: LIDOCAINE VISC 2% SOLN 15 ML UDC PO ONE (17:45)
[2022-07-23] MEDS ORDERED: MAGNESIUM/ALUMINUM/SIMETHICONE 30 ML UDC PO ONE (17:45)
[2022-07-23] MEDS ORDERED: SODIUM CHLORIDE 0.9% 1000ML 1,000 ML IV ONE ×2 (17:45→18:30)
[2022-07-23] MEDS ORDERED: IOPAMIDOL 370 MG/ML 100 ML INFUS..BTL INJ ONE (18:12)
[2022-07-23] MEDS ORDERED: Morphine 4mg INJECTION 4 MG/ML INJ IV ONE (20:30)
[2022-07-23] MEDS ORDERED: Morphine 4mg INJECTION 4 MG/ML INJ ONE (20:45)
[2022-07-23] MEDS ORDERED: PROMETHAZINE 25MG/ NS 50ML (IV) IV PRN (20:45)
[2022-07-23] MEDS ORDERED: PIPERACILLIN/TAZOBACTAM 3.375 GM VIAL ONE (20:45)
[2022-07-23] MEDS ORDERED: NEXIUM20 MG PO (22:49)
[2022-07-23] MEDS ORDERED: ATORVASTATIN CA20 MG PO (22:49)
[2022-07-23] MEDS ORDERED: METOPROLOL SUCC25 MG PO (22:49)
[2022-07-23 23:00] VITALS: BP 129/81; PULSE 52; RESP 18; TEMP 97.2; O2SAT 100
[2022-07-23 23:46] VITALS: BP 129/81; PULSE 52; RESP 18; TEMP 97.2; O2SAT 100
[2022-07-24] VITALS: BP 129/81; PULSE 52; RESP 18; TEMP 97.2; O2SAT 100
[2022-07-24] MEDS: ONDANSETRON HCL INJ 2MG/ML 2ML 2 MG/ML VIAL IV PRN ×4 (01:14→22:49)
[2022-07-24] MEDS: Morphine 4mg INJECTION 4 MG/ML INJ IV PRN ×4 (01:14→22:49)
[2022-07-24] MEDS: SODIUM CHLORIDE 0.9% 1000ML 1,000 ML IV SCH ×4 (01:15→21:49)
[2022-07-24 05:41] VITALS: BP 112/71; PULSE 74; RESP 20; TEMP 97.6; O2SAT 100
[2022-07-24 06:29] LABS: BASOPHILS # (AUTO) 0.1 (0.0-0.1); BASOPHILS % 0.8 % (0.0-1.0); EOSINOPHILS # (AUTO) 0.3 (0.0-0.4); EOSINOPHILS % 4.5 % (0.0-6.0); HEMATOCRIT 33.9 % (34.2-44.1); HEMOGLOBIN 10.6 g/dL (12.0-16.0); LYMPHOCYTES # (AUTO) 1.5 (1.0-3.2); LYMPHOCYTES % 22.9 % (18.0-39.1); MEAN CORPUSCULAR HEMOGLOBIN 27.7 pg (28-32); MEAN CORPUSCULAR HGB CONC 31.3 g/dL (31-35); MEAN CORPUSCULAR VOLUME 88.7 fL (81-99); MONOCYTES # (AUTO) 0.8 (0.2-0.8); MONOCYTES % 11.9 % (4.4-11.3); NEUTROPHILS # (AUTO) 3.9 (2.1-6.9); NEUTROPHILS % 59.6 % (38.7-80.0); PLATELET COUNT 281 x10e3/uL (140-360); RED BLOOD COUNT 3.82 x10e6/uL (3.6-5.1); RED CELL DISTRIBUTION WIDTH 13.2 % (11.7-14.4)
[2022-07-24 06:51] LABS: ALBUMIN 3.2 g/dL (3.5-5.0); ANION GAP 10.9 mmol/L (8-16); BILIRUBIN,DIRECT 0.2 mg/dL (0.0-0.5); CALCIUM 7.8 mg/dL (8.4-10.2); CREATININE, SERUM 0.78 mg/dL (0.57-1.11); POTASSIUM 3.9 mmol/L (3.5-5.1)
[2022-07-24 07:09] LABS: CHOL/HDL RATIO 5.4 (3.0-3.6)
[2022-07-24 09:02] VITALS: BP 100/65; PULSE 55; RESP 18; TEMP 98; O2SAT 100
[2022-07-24 13:04] VITALS: BP 105/72; PULSE 67; RESP 18; TEMP 98.1; O2SAT 96
[2022-07-24 20:01] VITALS: BP 129/68; PULSE 69; RESP 18; TEMP 97.6; O2SAT 99
[2022-07-24 20:30] VITALS: BP 129/68; PULSE 69; RESP 18; TEMP 97.6; O2SAT 99
[2022-07-25 00:31] LABS: % IRON SATURATION 33 % (15-50); IRON 98 ug/dL (50-170); TOTAL IRON BINDING CAPACITY 298 ug/dL (261-478); TRANSFERRIN 213 mg/dL (180-382)
[2022-07-25 01:09] VITALS: BP 117/72; PULSE 68; RESP 18; TEMP 97.9; O2SAT 98
[2022-07-25] MEDS: Morphine 4mg INJECTION 4 MG/ML INJ IV PRN ×4 (04:00→21:34)
[2022-07-25] MEDS: ONDANSETRON HCL INJ 2MG/ML 2ML 2 MG/ML VIAL IV PRN ×3 (04:00→20:28)
[2022-07-25 05:02] VITALS: BP 135/83; PULSE 71; RESP 18; TEMP 97.2; O2SAT 98
[2022-07-25] MEDS: SODIUM CHLORIDE 0.9% 1000ML 1,000 ML IV SCH ×2 (06:18→12:45)
[2022-07-25 08:21] VITALS: BP 106/69; PULSE 71; RESP 20; TEMP 98.1; O2SAT 100
[2022-07-25] MEDS ORDERED: MIDAZOLAM HCL 2 MG/2 ML VIAL ONE (11:40)
[2022-07-25] MEDS ORDERED: FENTANYL CITRATE/PF 100MCG/2 ML INJ ONE ×2 (11:40→15:13)
[2022-07-25] MEDS ORDERED: ACETAMINOPHEN 1000 MG/100 ML 100 ML IV ONE (11:48)
[2022-07-25 12:13] VITALS: BP 119/63; PULSE 64; RESP 20; TEMP 98.4; O2SAT 97
[2022-07-25] MEDS ORDERED: ROCURONIUM BROMIDE 10 MG/ML 5ML VIAL IV ONE (12:17)
[2022-07-25] MEDS ORDERED: PROPOFOL IV EMULSION 10 MG/ML 20 ML VIAL ONE (12:17)
[2022-07-25] MEDS ORDERED: DEXAMETHASONE SOD PHOS INJ 4 MG/ML SDV ONE (12:17)
[2022-07-25] MEDS ORDERED: POVIDONE IODINE 0.05% 0.05 % ML PO ONE (12:17)
[2022-07-25] MEDS ORDERED: SEVOFLURANE INHAL SOLN 250 ML PEN BTL ONE (12:17)
[2022-07-25] MEDS ORDERED: LIDOCAINE HCL 2% LOCAL INJ 5 ML SDV VIAL INJ ONE (12:17)
[2022-07-25] MEDS ORDERED: ONDANSETRON HCL INJ 2MG/ML 2ML 2 MG/ML VIAL ONE ×2 (12:17→15:13)
[2022-07-25] MEDS ORDERED: KETOROLAC TROMETHAMINE 30 MG/ML VIAL ONE (12:17)
[2022-07-25] MEDS ORDERED: BUPIVACAINE 0.5%/EPI 30 ML SDV INJ ONE (12:18)
[2022-07-25] MEDS ORDERED: PIPERACILLIN/TAZOBACTAM 3.375 GM VIAL ONE (15:10)
[2022-07-25] MEDS ORDERED: ONDANSETRON HCL INJ 2MG/ML 2ML 2 MG/ML VIAL IV ONE (15:14)
[2022-07-25] MEDS ORDERED: HYDROCODONE/APAP 7.5MG-325MG 1 EA TAB PO PRN (15:15)
[2022-07-25] MEDS ORDERED: KETOROLAC TROMETHAMINE 30 MG/ML VIAL IV PRN (15:15)
[2022-07-25] MEDS ORDERED: FENTANYL CITRATE/PF 100MCG/2 ML INJ IV ONE (15:20)
[2022-07-25] MEDS ORDERED: METOCLOPRAMIDE HCL 10 MG/2ML VIAL ONE (15:34)
[2022-07-25] MEDS ORDERED: METOCLOPRAMIDE HCL 10 MG/2ML VIAL IV ONE (15:36)
[2022-07-25] MEDS: METOPROLOL SUCCINATE 25 MG TAB XL PO SCH (17:19)
[2022-07-25 20:00] VITALS: BP 131/71; PULSE 60; RESP 17; TEMP 98.3; O2SAT 99
[2022-07-25] MEDS ORDERED: BISACODYL 5 MG TAB EC PO ONE ×2 (23:00→23:30)
[2022-07-26] VITALS (8 sets, daily range): BP systolic 113–144; BP diastolic 68–90; PULSE 60–85; RESP 16–21; TEMP 97.5–98.6; O2SAT 97–100
[2022-07-26] MEDS ORDERED: BISACODYL 5 MG TAB EC PO ONE
[2022-07-26] MEDS: ONDANSETRON HCL INJ 2MG/ML 2ML 2 MG/ML VIAL IV PRN ×3 (02:31→11:59)
[2022-07-26] MEDS: Morphine 4mg INJECTION 4 MG/ML INJ IV PRN ×3 (02:32→12:00)
[2022-07-26] MEDS: SODIUM CHLORIDE 0.9% 1000ML 1,000 ML IV SCH ×4 (02:32→20:29)
[2022-07-26] MEDS ORDERED: CITRATE OF MAGNESIA 300ML BOTTLE PO ONE ×2 (05:00→07:00)
[2022-07-26 07:43] LABS: BASOPHILS % 0.3 % (0.0-1.0); EOSINOPHILS # (AUTO) 0.1 (0.0-0.4); EOSINOPHILS % 0.5 % (0.0-6.0); HEMATOCRIT 37.1 % (34.2-44.1); HEMOGLOBIN 11.7 g/dL (12.0-16.0); LYMPHOCYTES # (AUTO) 1.5 (1.0-3.2); LYMPHOCYTES % 12.2 % (18.0-39.1); MEAN CORPUSCULAR HGB CONC 31.5 g/dL (31-35); MEAN CORPUSCULAR VOLUME 88.8 fL (81-99); MONOCYTES # (AUTO) 1.3 (0.2-0.8); NEUTROPHILS # (AUTO) 9.1 (2.1-6.9); NEUTROPHILS % 75.7 % (38.7-80.0); PLATELET COUNT 316 x10e3/uL (140-360); RED BLOOD COUNT 4.18 x10e6/uL (3.6-5.1); RED CELL DISTRIBUTION WIDTH 13.1 % (11.7-14.4)
[2022-07-26 08:15] LABS: ALBUMIN 3.7 g/dL (3.5-5.0); ALBUMIN/GLOBULIN RATIO 1.3 (0.8-2.0); ANION GAP 12.2 mmol/L (8-16); CALCIUM 8.4 mg/dL (8.4-10.2); CREATININE, SERUM 0.76 mg/dL (0.57-1.11); POTASSIUM 3.2 mmol/L (3.5-5.1)
[2022-07-26] MEDS: METOPROLOL SUCCINATE 25 MG TAB XL PO SCH ×2 (09:31→18:05)
[2022-07-26] MEDS: FOLIC ACID 1 MG TAB PO SCH (09:31)
[2022-07-26] MEDS: SENNOSIDES 8.6 MG TAB PO SCH ×2 (14:58→18:04)
[2022-07-26] MEDS: DOCUSATE SODIUM 100 MG CAP PO SCH (15:09)
[2022-07-26] MEDS: HYDROMORPHONE 1MG/1ML INJ IV PRN (18:14)
[2022-07-26] MEDS: TRAMADOL HCL 50 MG TAB PO PRN (20:28)
[2022-07-27 00:07] VITALS: BP 129/75; PULSE 64; RESP 17; TEMP 97.5; O2SAT 100
[2022-07-27] MEDS: HYDROMORPHONE 1MG/1ML INJ IV PRN (00:52)
[2022-07-27 00:53] VITALS: BP 139/89; PULSE 80; RESP 17; TEMP 97.5; O2SAT 100
[2022-07-27 04:59] VITALS: BP 134/89; PULSE 64; RESP 17; TEMP 98.5; O2SAT 99
[2022-07-27] MEDS: SODIUM CHLORIDE 0.9% 1000ML 1,000 ML IV SCH (05:55)
[2022-07-27] MEDS: TRAMADOL HCL 50 MG TAB PO PRN (07:32)
[2022-07-27 08:00] VITALS: BP 145/95; PULSE 58; RESP 19; TEMP 98.6; O2SAT 100
[2022-07-27 08:40] VITALS: BP 145/95; PULSE 70; RESP 20; TEMP 98.6; O2SAT 100
[2022-07-27] MEDS: FOLIC ACID 1 MG TAB PO SCH (08:45)
[2022-07-27] MEDS: DOCUSATE SODIUM 100 MG CAP PO SCH (08:47)
[2022-07-27] MEDS: SENNOSIDES 8.6 MG TAB PO SCH (08:47)
[2022-07-27] MEDS: METOPROLOL SUCCINATE 25 MG TAB XL PO SCH (08:47)
[2022-07-27] MEDS ORDERED: Docusate Sodium PO (09:24)
[2022-07-27] MEDS ORDERED: PANTOPRAZOLE SO40 MG PO (09:24)
[2022-07-27] MEDS ORDERED: Folic Acid PO (09:24)
[2022-07-27] MEDS ORDERED: TYLENOL325 MG PO (09:24)
[2022-07-27] MEDS ORDERED: ULTRAM 50MG50 MG PO (09:24)
[2022-07-27] MEDS ORDERED: SENOKOT8.6 MG PO (09:24)
[2022-07-27] MEDS ORDERED: METRONIDAZOLE500 MG PO (09:24)
[2022-07-27] MEDS ORDERED: POTASSIUM CHLORIDE 20 MEQ TAB CR PO ONE (11:30)
== END 2022-07-27 11:58 | disposition home or self-care (01) | DRG 419 ==
LOC: FSED 17:05 → ERHOLD 20:45 → MED/SURG2 22:41 → OBSVTOIN 07-25 10:48 → INTOOBSV 07-25 10:48 → OBSVTOIN 07-25 15:46
PROVIDERS: ADMIT Internal Medicine; ATTEND Internal Medicine
PROC: 0FT44ZZ Resection of Gallbladder, Percutaneous Endoscopic Approach (ICD-10-PCS; principal; 2022-07-25 13:15)
DX: K81.0 Acute cholecystitis (principal); K57.30 Diverticulosis of large intestine without perforation or abscess without bleeding; E66.9 Obesity, unspecified; Z68.38 Body mass index [BMI] 38.0-38.9, adult; R91.1 Solitary pulmonary nodule; E78.5 Hyperlipidemia, unspecified; I10 Essential (primary) hypertension
CPT/HCPCS: 0223U; 36415; 74177; 76705; 78227; 80048; 80053; 80061; 80076; 81003; 82553; 82607; 82746; 83036; 83540; 84132; 84466; 84484; 85025; 85045; 88304; 93005; 96361; 96374; 96375; 96376; 99284; A9537; C1766; G0378; J1100; J1170; J1885; J2001; J2250; J2270; J2405; J2543; J2550; J2765; J7030; Q9967

== ENCOUNTER 2024-06-09 16:03 | Emergency (ER) | payer BC, OTHER ==
[~2024-06-09 16:03] MED LIST changes: +ATORVASTATIN CA20 MG PO; +Docusate Sodium PO; +Folic Acid PO; +METOPROLOL SUCC25 MG PO; +METRONIDAZOLE500 MG PO; +NEXIUM20 MG PO; +PANTOPRAZOLE SO40 MG PO; +SENOKOT8.6 MG PO; +TYLENOL325 MG PO
[2024-06-09 16:08] VITALS: PULSE 75; RESP 16; TEMP 97; O2SAT 99
[2024-06-09] MEDS ORDERED: HYDROCODON-ACE1 EAC9 PO (16:47)
[2024-06-09] MEDS ORDERED: ONDANSETRON ODT4 MG PO (16:47)
[2024-06-09] MEDS ORDERED: COLACE100 M1 PO (16:47)
[2024-06-09] MEDS ORDERED: ANUSOL-HC25 MG RC (16:47)
[2024-06-09] MEDS ORDERED: SORBITOL1 ML PO (16:47)
== END 2024-06-09 16:55 | disposition home or self-care (01) ==
LOC: FSED 16:13
DX: K62.89 Other specified diseases of anus and rectum (principal); K64.5 Perianal venous thrombosis; I10 Essential (primary) hypertension; E78.5 Hyperlipidemia, unspecified
CPT/HCPCS: 99284

== ENCOUNTER 2024-06-26 15:02 | Emergency (ER) | payer BC ==
[~2024-06-26] VITALS: Ht 170.2 cm; Wt 120.2 kg
[~2024-06-26 15:02] MED LIST changes: +ANUSOL-HC25 MG RC; +COLACE100 M1 PO; +HYDROCODON-ACE1 EAC9 PO; +SORBITOL1 ML PO
[2024-06-26] MEDS ORDERED: EPIFOAM FOAM10 GM TOP (17:11)
[2024-06-26 17:15] VITALS: PULSE 70; RESP 16; TEMP 98.4; O2SAT 97
== END 2024-06-26 17:20 | disposition home or self-care (01) ==
LOC: ER 15:15
DX: K62.89 Other specified diseases of anus and rectum (principal); K64.5 Perianal venous thrombosis; I10 Essential (primary) hypertension; E11.9 Type 2 diabetes mellitus without complications; E78.5 Hyperlipidemia, unspecified; Z87.19 Personal history of other diseases of the digestive system
CPT/HCPCS: 99283